=== PATIENT | male | born 2000 | race Caucasian/White ===

== ENCOUNTER 2020-08-26 04:06 | Emergency (ER) | payer OTHER ==
[~2020-08-26] VITALS: Ht 180.3 cm; Wt 74.8 kg
[~2020-08-26 04:06] MED LIST: AMOXICILLIN/CLA1 TA2 PO; CEPHALEXIN500 M1 PO; OMEPRAZOLE D/R20 MG PO; STRATTERA80 MG PO; TYLENOL W/CODEI1 TA4 PO; VITAMIN D50000 I3 PO
[2020-08-26] MEDS ORDERED: CIPRO500 MG PO (04:26)
[2020-08-26] MEDS ORDERED: NAPROXEN250 MG PO (04:26)
== END 2020-08-26 05:46 | disposition home or self-care (01) ==
LOC: ED 04:06
DX: N45.1 Epididymitis (principal); Z79.899 Other long term (current) drug therapy; Z98.890 Other specified postprocedural states

== ENCOUNTER 2023-05-19 20:30 | Emergency (ER) | payer OTHER ==
[~2023-05-19] VITALS: Ht 175.2 cm; Wt 81.6 kg
[~2023-05-19 20:30] MED LIST changes: +CIPRO500 MG PO; +NAPROXEN250 MG PO
[2023-05-19] MEDS ORDERED: MELOXICAM15 MG PO (22:51)
[2023-05-19] MEDS ORDERED: CYCLOBENZAPRINE10 MG PO (22:51)
== END 2023-05-20 00:07 | disposition home or self-care (01) ==
LOC: ED 20:30
DX: M62.830 Muscle spasm of back (principal); M54.50 Low back pain, unspecified; K21.9 Gastro-esophageal reflux disease without esophagitis; F90.9 Attention-deficit hyperactivity disorder, unspecified type; Z98.890 Other specified postprocedural states; Z87.891 Personal history of nicotine dependence